=== PATIENT | female | born 1990 ===

== ENCOUNTER 2017-11-30 18:03 | Emergency (ER) | payer BC ==
[2017-11-30 18:29] VITALS: BMI 24.4
--- NOTE | 2017-11-30 19:17 | C.PDOC ---
History Of Present Illness Patient presents to the ER with a complaint of clear vaginal discharge. Patient reports she is 18 weeks . Denies fever, chills, nausea, vomiting, trauma , or heavy straining. Time Seen by Provider: 11/30/17 19:16 Chief Complaint (Nursing): Female Genitourinary History Per: Patient History/Exam Limitations: no limitations Onset/Duration Of Symptoms: Hrs Current Symptoms Are (Timing): Still Present Severity: Mild Pain Scale Rating Of: 3 Quality Of Discomfort: Unable To Describe Associated Symptoms: denies: Fever, Chills, Nausea, Vomiting Alleviating Factors: None Recent travel outside of the [place]: No Abnormal Vaginal Bleeding: No Past Medical History Reviewed: Historical Data, Nursing Documentation, Vital Signs Vital Signs: Last Vital Signs Temp 97.6 F 11/30/17 22:45 Pulse 81 11/30/17 22:45 Resp 20 11/30/17 22:45 BP 121/69 11/30/17 22:45 Pulse Ox 98 11/30/17 22:45 Family History: States: No Known Family Hx - Social History Hx Alcohol Use: Yes Hx Substance Use: No - Immunization History Hx Tetanus Toxoid Vaccination: No Hx Influenza Vaccination: Yes Hx Pneumococcal Vaccination: No Review Of Systems Constitutional: Negative for: Fever, Chills Cardiovascular: Negative for: Chest Pain, Palpitations Respiratory: Negative for: Cough, Shortness of Breath Gastrointestinal: Negative for: Nausea, Vomiting Genitourinary: Positive for: Vaginal Discharge (Clear). Negative for: Dysuria, Hematuria Physical Exam - Physical Exam Appears: Non-toxic Skin: Warm, Dry Head: Normacephalic Oral Mucosa: Moist Chest: Symmetrical, No Tenderness Cardiovascular: Rhythm Regular Respiratory: No Rales, No Rhonchi, No Wheezing Gastrointestinal/Abdominal: Soft, No Tenderness, Other (Gravid) Neurological/Psych: Oriented x3 ED Course And Treatment - Laboratory Results Result Diagrams: 11/30/17 19:43 11/30/17 19:43 O2 Sat by Pulse Oximetry: 100 (Room air) Pulse Ox Interpretation: Normal Progress Note: Blood work, urinalysis, and transvaginal US ordered. IV fluids administered. Reevaluation Time: 22:48 Reassessment Condition: Improved Disposition Counseled Patient/Family Regarding: Studies Performed, Diagnosis, Need For Followup - Disposition Disposition: HOME/ ROUTINE Disposition Time: 19:17 Condition: FAIR Additional Instructions: Please follow up with your ACUTE CARE CLINICAL NURSE SPECIALIST Instructions: Threatened Miscarriage (DC) Forms: [employer] (Kinyarwanda) - Clinical Impression Clinical Impression: Threatened - Scribe Statement The provider has reviewed the documentation as recorded by the Scribananya Guzman All medical record entries made by the Scribe were at my direction and personally dictated by me. I have reviewed the chart and agree that the record accurately reflects my personal performance of the history, physical exam, medical decision making, and the department course for this patient. I have also personally directed, reviewed, and agree with the discharge instructions and disposition.
[2017-11-30] MEDS ORDERED: Sodium Chloride 0.9% 1,000 ML IV ONE (19:30)
[2017-11-30 19:40] LABS: HCG,QUALITATIVE URINE POSITIVE (NEGATIVE)
[2017-11-30 19:47] LABS: BASO % 0.2 % (0.0-2.0); EOS # 0.1 K/uL (0.0-0.7); EOS % 0.8 % (0.0-4.0); HEMOGLOBIN 11.6 g/dL (11.0-16.0); LYMPH # 2.6 K/uL (1.0-4.3); LYMPH % 15.4 % (20.0-40.0); MEAN CORPUSCULAR HEMOGLOBIN 27.9 pg (27.0-31.0); MEAN PLATELET VOLUME 7.5 fL (7.2-11.7); MONO % 5.6 % (0.0-10.0); NEUT # 13.3 K/uL (1.8-7.0); RBC 4.15 Mil/uL (3.80-5.20); RED CELL DISTRIBUTION WIDTH 13.8 % (11.5-14.5); WHITE BLOOD COUNT 17.1 K/uL (4.8-10.8)
[2017-11-30 19:48] LABS: SQUAMOUS EPITHIAL < 1 /hpf (0-5); URINE BACTERIA MOD (<OCC); URINE BILIRUBIN NEGATIVE (NEGATIVE); URINE BLOOD NEGATIVE (NEGATIVE); URINE CLARITY Clear (Clear); URINE COLOR Colorless (YELLOW); URINE GLUCOSE (UA) NORMAL (Normal); URINE LEUKOCYTE ESTERASE NEG Leu/uL (Negative); URINE PROTEIN NEGATIVE (NEGATIVE); URINE UROBILINOGEN NORMAL mg/dL (0.2-1.0)
[2017-11-30 19:58] LABS: ALB/GLOB RATIO 1.2 (1.0-2.1); ALBUMIN 4.3 g/dL (3.5-5.0); ALT/SGPT 48 U/L (9-52); AST/SGOT 30 U/L (14-36); BLOOD UREA NITROGEN 8 mg/dL (7-17); CALCIUM 9.6 mg/dl (8.6-10.4); GFR AFRICAN-AMERICAN > 60; GFR NON-AFRICAN AMERICAN > 60; INR 1.1; PROTHROMBIN TIME 11.8 SECONDS (9.7-12.2)
[2017-11-30 22:46] VITALS: BP 121/69; PULSE 81; RESP 20; TEMP 97.6
[2017-11-30 22:49] VITALS: O2SAT 100
--- NOTE | 2017-12-01 13:03 | US ---
PROCEDURE: OB Pelvic Ultrasound HISTORY: 18 weeks , fluid leakage LMP: 07/18/2017 COMPARISON: None available. FINDINGS: UTERUS: Gestational sac: Single intrauterine gestation. Heart rate: 146 bpm. age (Ultrasound estimated): 19 weeks 4 days 1 week 3 days Leslie-gestational hemorrhage: None. Date of delivery (Ultrasound estimated) : 04/22/2018 presentation transverse Uterus measures unremarkable. The placenta is anterior and clear from the internal cervical os. The inferior placental edge on these images approximately 3 cm from the internal cervical os CERVIX: Measures approximately 4 cm cm. Long and closed. There is trace fluid seen in the mid endo cervical canal. No bulging of fluid into the internal cervical os noted. RIGHT OVARY: Not visualized. LEFT OVARY: Not visualized. FREE FLUID: None. OTHER FINDINGS: All of the biometric parameters correspond to an approximately 19 weeks gestation IMPRESSION: Single intrauterine gestation, transverse presentation, with cardiac activity. Biometric parameters all concordant with an ultrasound gestation of 19 weeks 4 days 1 week 3 days. Estimated date of delivery by ultrasound 04/22/2018. . Clinical dates are 19 weeks 2 days with estimated date of delivery per LMP 04/24/2018 The cervix is within normal limits for length and appears closed. There is trace fluid in the mid endocervical canal segment. No bulging of fluid into the internal cervical os noted. Anterior placenta whose inferior edge is greater than 2 cm from the internal cervical os. Limited anatomy exam performed on urgent basis regarding fluid leakage Comments: Preliminary report per Vrad compatible with this report.
== END 2017-11-30 22:54 | disposition home or self-care (01) ==
LOC: C.ER 18:03
DX: O20.0 Threatened abortion (principal); Z3A.19 19 weeks gestation of pregnancy
CPT/HCPCS: 76815; 80053; 81001; 84702; 84703; 85025; 85610; 85730; 86850; 86900; 96360; 99285; J7030